=== PATIENT | female | born 1990 | race Caucasian/White ===

== ENCOUNTER 2017-01-17 03:24 | Outpatient (CLI) | payer MEDICAID | END 2017-01-17 03:25 | disposition EMS.NT | LOC: EMS 03:24 | PROVIDERS: ATTEND Surgery | DX: R10.13 Epigastric pain (principal) ==

== ENCOUNTER 2017-09-20 22:39 | Emergency (ER) | payer MEDICAID ==
[2017-09-20 22:47] VITALS: BP 145/102
--- NOTE | 2017-09-20 22:49 | ED Physician Documentation ---
PD HPI BACK PAIN - Stated complaint Stated Complaint: BACK PX - Chief complaint Chief Complaint: Back Pain - History obtained from History obtained from: Patient - History of Present Illness Timing - onset: How many weeks ago (1) Timing - details: Abrupt onset, Intermittant, Waxing and waning Pain level now: 8 Location: Mid, Right, Other (right paralumbar) Quality: Pain Associated symptoms: No: Fever, Weakness Improves with: Nothing Worsened by: Other (no exacerbating factors) Similar symptoms before: Has not had sx before Recently seen: Not recently seen - Additional information Additional information: c/o one week of intermittent right flank and right paralumbar back pain with nausea, became much worse today in severity and persistence (although it has improved while awaiting ED evaluation). Denies injury, denies similar previous episodes Review of Systems Constitutional: denies: Fever, Chills, Sweats Cardiac: reports: Reviewed and negative Respiratory: reports: Reviewed and negative GI: reports: Nausea. denies: Abdominal Pain, Vomiting, Constipation, Diarrhea : denies: Dysuria, Frequency Musculoskeletal: reports: Back pain PD PAST MEDICAL HISTORY - Past Medical History Past Medical History: No - Past Surgical History Past Surgical History: No - Present Medications Home Medications: Ambulatory Orders Medication Instructions Recorded Confirmed Control Implant 09/20/17 HYDROcod/ACETAM 5/325 [[place] 5/325] 1 - 2 ea PO Q6H PRN #15 tablet 09/21/17 - Allergies Allergies/Adverse Reactions: Allergies Allergy/AdvReac Type Severity Reaction Status Date / Time No Known Drug Allergies Allergy Verified 09/20/17 22:47 - Social History Does the pt smoke?: No Smoking Status: Never smoker Does the pt drink ETOH?: No Does the pt have substance abuse?: No PD ED PE NORMAL - Vitals Vital signs reviewed: Yes - General General: Alert and oriented X 3, No acute distress, Well developed/nourished - Cardiac Cardiac: RRR, No murmur - Respiratory Respiratory: No respiratory distress, Clear bilaterally - Abdomen Abdomen: Soft, Non tender, Non distended - Back Back: No CVA TTP, No spinal TTP - Derm Derm: Normal color, Warm and dry, No rash Results - Vitals Vitals: Vital Signs - 24 hr 09/20/17 22:45 Temperature 36.5 C Heart Rate 100 Respiratory 18 Rate Blood Pressure 145/102 H O2 Saturation 100 Oxygen O2 Source Room air - Labs Labs: Laboratory Tests 09/20/17 23:45 Urine Color YELLOW Urine Clarity CLEAR Urine pH 6.0 Ur Specific [place] 1.020 Urine Protein NEGATIVE Urine Glucose (UA) NEGATIVE Urine Ketones NEGATIVE Urine Occult Blood NEGATIVE Urine Nitrite NEGATIVE Urine Bilirubin NEGATIVE Urine Urobilinogen 0.2 (NORMAL) Ur Leukocyte Esterase NEGATIVE Ur Microscopic Review NOT INDICATED Urine Culture Comments NOT INDICATED - Rads (name of study) CT A/P Radiology: Prelim report reviewed, See rad report PD MEDICAL DECISION MAKING - ED course Complexity details: reviewed results, re-evaluated patient, considered differential, d/w patient ED course: suspected renal colic but CT shows no evidence of renal colic, and does show cholelithiasis. Patient reported significant improvement in pain after toradol, and reexam of abdomen reveals no tenderness (as initial exam). patient is appropriate for d/c home, outpatient f/u and return if worse Departure - Departure Disposition: 01 Home, Self Care Clinical Impression: Biliary colic Condition: Good Instructions: ED Gallstone W Biliary Colic Follow-Up: Hair Laguerre MD [Provider Admit Priv/Credential] - (Call to arrange for next available appointment) Prescriptions: HYDROcod/ACETAM 5/325 [[place] 5/325] 1 - 2 ea PO Q6H PRN #15 tablet PRN Reason: Pain Discharge Date/Time: 09/21/17 00:43
--- NOTE | 2017-09-20 23:53 | CT Report ---
EXAM: CT ABDOMEN AND PELVIS (CT KUB) EXAM DATE: 09/20/2017 11:40 PM. CLINICAL HISTORY: Right flank pain. COMPARISONS: Ultrasound 06/03/2016. TECHNIQUE: Routine axial helical CT imaging was performed through the abdomen and pelvis without IV c ontrast. Reconstructions: Coronal and sagittal. In accordance with CT protocol optimization, one or more of the following dose reduction techniques w ere utilized for this exam: automated exposure control, adjustment of mA and/or KV based on patient s ize, or use of iterative reconstructive technique. FINDINGS: Lung Bases: Unremarkable. Right Kidney/Ureter: No stones, hydronephrosis, or hydroureter. No perinephric fat stranding. Left Kidney/Ureter: No stones, hydronephrosis, or hydroureter. No perinephric fat stranding. Other Solid Organs: Noncontrast images of the solid organs are grossly unremarkable. Gallbladder/Bile Ducts: Cholelithiasis without definite cholecystitis. Peritoneal Cavity: No free fluid, free air or jw adenopathy. Bowel is grossly unremarkable. Normal appendix. Pelvic Organs: No bladder stones or wall thickening. Noncontrast images of the visualized pelvic orga ns are unremarkable. Vasculature: Unremarkable. Other: None. IMPRESSION: 1. No urinary tract stones or obstruction. 2. Cholelithiasis. [facility] Referring Provider Line: [phone] SITE ID: [id number]
[2017-09-20 23:56] LABS: BILIRUBIN,URINE NEGATIVE (NEGATIVE); GLUCOSE, URINE (UA) NEGATIVE (NEGATIVE); KETONES,URINE (UA) NEGATIVE (NEGATIVE); LEUKOCYTE ESTERASE, URINE NEGATIVE (NEGATIVE); NITRITE,URINE NEGATIVE (NEGATIVE); OCCULT BLOOD,URINE NEGATIVE (NEGATIVE); PROTEIN,URINE NEGATIVE (NEGATIVE); UROBILINOGEN,URINE 0.2 (NORMAL) E.U./dL (NORMAL)
[2017-09-20 23:57] LABS: CLARITY,URINE CLEAR (CLEAR)
[2017-09-21] MEDS ORDERED: HYDROcod/ACET 5/325 Prepack 6 PO STA (00:16)
== END 2017-09-21 00:43 | disposition home or self-care (01) ==
LOC: ED 22:39
DX: K80.50 Calculus of bile duct without cholangitis or cholecystitis without obstruction (principal)
CPT/HCPCS: 74176; 81001; 81003; 87086; 99283

== ENCOUNTER 2017-10-29 09:12 | Day surgery (SDC) | payer MEDICAID ==
[2017-10-29] MEDS ORDERED: ceFAZolin 2 GM/50 ML 2 GM/50 ML BAG IV ONE (09:26)
[2017-10-29] MEDS ORDERED: LACTATED RINGERS 1,000 ML IV ONE ×2 (09:27→12:45)
[2017-10-29 09:41] LABS: HCG UR QUAL NEGATIVE
[2017-10-29] MEDS ORDERED: PROPOFOL 200 MG/20 ML VIAL IVP ONE (12:30)
[2017-10-29] MEDS ORDERED: NEOSTIGMINE 1 MG/1 ML 10 ML MDV IVP ONE (12:30)
[2017-10-29] MEDS ORDERED: DEXAMETHASONE 4 MG/ML VIAL IVP ONE (12:30)
[2017-10-29] MEDS ORDERED: GLYCOPYRROLATE 1 MG/5 ML VIAL IVP ONE (12:30)
[2017-10-29] MEDS ORDERED: SUCCINYLCHOLINE 200 MG/10 ML VIAL IVP ONE (12:30)
[2017-10-29] MEDS ORDERED: ROCURONIUM 50 MG/5 ML VIAL IVP ONE (12:30)
[2017-10-29] MEDS ORDERED: KETOROLAC 30 MG/ML VIAL IVP ONE (12:30)
[2017-10-29] MEDS ORDERED: LIDOCAINE-MPF 2% 5 ML VIAL IM ONE (12:30)
[2017-10-29] MEDS ORDERED: fentaNYL 100 MCG/2 ML VIAL IVP ONE (12:30)
[2017-10-29] MEDS ORDERED: MIDAZOLAM 2 MG/2 ML VIAL IVP ONE (12:30)
[2017-10-29] MEDS ORDERED: ONDANSETRON 4 MG/2 ML VIAL IVP ONE (12:30)
[2017-10-29] MEDS ORDERED: LIDOCAINE 1%-EPI 1:100000 20 ML MDV SUBQ ONE ×2 (12:38)
[2017-10-29] MEDS: HYDROmorphone 1 MG/ML SYRINGE ONE ×3 (13:32→13:43)
[2017-10-29] MEDS ORDERED: HYDROmorphone 1 MG/ML SYRINGE ONE (14:17)
[2017-10-29] MEDS ORDERED: HYDROcod/ACETAM 5/325 MG TABLET ONE (14:54)
[2017-10-29 15:18] VITALS: BP 121/62
--- NOTE | 2017-10-29 19:31 | OPERATIVE REPORT ---
DATE OF SERVICE: 10/29/2017 Physician: Hair Laguerre MD PREOPERATIVE DIAGNOSIS: Chronic cholecystitis with cholelithiasis. POSTOPERATIVE DIAGNOSIS: Chronic cholecystitis with cholelithiasis. NAME OF PROCEDURE: Laparoscopic cholecystectomy. SURGEON: Hair Laguerre MD ANESTHESIA: General. INDICATIONS FOR PROCEDURE: The patient is a 27-year-old female who presents with severe right upper quadrant abdominal pain, radiating to her back. She was seen in the emergency room and was given pain medication with her pain resolving. She had an abdominal ultrasound, which revealed gallbladder with gallstones. She has had intermittent right upper quadrant abdominal pain since she was seen in the emergency room. She would like to undergo a laparoscopic cholecystectomy. FINDINGS AT SURGERY: The patient had a chronically inflamed gallbladder, containing a large gallstone. PROCEDURE: After informed consent was obtained, the patient was taken to the operating room and placed in supine position. General endotracheal anesthesia was administered. The patient's abdomen was prepped and draped in the usual sterile fashion. Prior to making any abdominal incisions, the skin was injected with local anesthesia. An infraumbilical incision was made in the skin using a scalpel. A Veress needle was then inserted through the incision, through the fascia, and into the abdominal cavity. Position was checked and found correct, with the abdomen then being insufflated. A 12 mm Optiview trocar was inserted through the incision, through the fascia and into the abdominal cavity. Three 5 mm ports were then placed in the right upper quadrant under direct vision. Gallbladder fundus was then grasped and lifted anteriorly and superiorly, exposing the triangle of [place]ot. The peritoneum was then incised in this area. The cystic duct was identified and dissected free from the surrounding structures. The cystic artery was then isolated, clipped proximally and distally, and then divided. A critical view had been obtained. Clips were then placed proximally and distally along the cystic duct with them being divided. The gallbladder was then dissected off the gallbladder bed using electrocautery, placed in an Endobag, and removed through the umbilical port. The right upper quadrant was thoroughly irrigated until the returned fluid was clear. Looking at the gallbladder bed, no bleeding was noted. The umbilical fascial defect was closed using a Yaakov-Melanie suturing device, closing it with 0 Vicryl suture. The ports were then removed with the abdomen then being desufflated. The skin incisions were closed using 4-0 Monocryl subcuticular stitch. Dermabond was then applied. The patient was then awakened, extubated, and taken from the operating room in stable condition. ESTIMATED BLOOD LOSS: Less than 5 mL COMPLICATIONS: None. CONDITION OF THE PATIENT AT END OF PROCEDURE: Stable. SPECIMENS: Gallbladder and gallstones. DRAINS AND PACKS: None. CLASSIFICATION OF WOUND: Clean/contaminated. TD: 10/29/2017 19:21
== END 2017-10-29 09:13 | disposition home or self-care (01) ==
LOC: SDS 09:12
PROVIDERS: ATTEND Surgery
PROC: 0FT44ZZ Resection of Gallbladder, Percutaneous Endoscopic Approach (ICD-10-PCS; principal; 2017-10-29 10:30)
DX: K80.10 Calculus of gallbladder with chronic cholecystitis without obstruction (principal)
CPT/HCPCS: 47562; 81025; A9270; J0690; J1170; J7120

== ENCOUNTER 2021-01-09 15:16 | Day surgery (SDC) | payer MEDICAID, OTHER ==
[2021-01-09] MEDS ORDERED: HYDROmorphone 1 MG/ML CARPUJECT IVP STA ×2 (15:37→16:48)
[2021-01-09] MEDS ORDERED: ONDANSETRON 4 MG/2 ML VIAL IVP STA (15:37)
--- NOTE | 2021-01-09 15:38 | ED Physician Documentation ---
PD HPI ABD PAIN - Stated complaint Stated Complaint: ABD PX - Chief complaint Chief Complaint: Abd Pain - History obtained from History obtained from: Patient - Additional information Additional information: 30-year-old woman with history of cholecystectomy has had progressive right lower quadrant pain today associated with vomiting and diarrhea. The diarrhea is not so bad but she vomited for an hour before she came in. Last menses finished up about a week ago. No possibility of per her. No other abdominal surgeries save the cholecystectomy. Review of Systems Ten Systems: 10 systems reviewed and negative Constitutional: denies: Fever, Chills Nose: reports: Reviewed and negative Throat: reports: Reviewed and negative Cardiac: reports: Reviewed and negative Respiratory: reports: Reviewed and negative PD PAST MEDICAL HISTORY - Past Medical History Cardiovascular: None Respiratory: None Endocrine/Autoimmune: None GI: Cholelithiasis : None HEENT: None Psych: None Musculoskeletal: Chronic back pain Derm: Psoriasis - Past Surgical History Past Surgical History: No - Present Medications Home Medications: Ambulatory Orders Medication Instructions Recorded Confirmed Control Implant 09/20/17 HYDROcod/ACETAM 5/325 [[place] 5/325] 1 - 2 ea PO Q6H PRN #15 tablet 09/21/17 10/22/17 - Allergies Allergies/Adverse Reactions: Allergies Allergy/AdvReac Type Severity Reaction Status Date / Time No Known Drug Allergies Allergy Verified 01/09/21 15:21 - Social History Does the pt smoke?: No Smoking Status: Never smoker Does the pt drink ETOH?: No Does the pt have substance abuse?: No - Immunizations Immunizations are current?: Yes PD ED PE NORMAL - Vitals Vital signs reviewed: Yes - General General: Alert and oriented X 3, No acute distress - HEENT HEENT: PERRL, EOMI - Neck Neck: Supple, no meningeal sign, No bony TTP - Cardiac Cardiac: RRR, No murmur - Respiratory Respiratory: No respiratory distress, Clear bilaterally - Abdomen Abdomen: Normal bowel sounds, Soft, Other (Focally tender in the right lower quadrant with positive heeltap and borderline Rovsing's sign.) - Back Back: No CVA TTP, No spinal TTP - Derm Derm: Normal color, Warm and dry - Extremities Extremities: No edema, No calf tenderness / cord - Neuro Neuro: Alert and oriented X 3, Normal speech Results - Vitals Vitals: Vital Signs - 24 hr 01/09/21 15:21 Temperature 36.5 C Heart Rate 100 Respiratory 16 Rate Blood Pressure 150/57 H O2 Saturation 100 Oxygen O2 Source Room air - Labs Labs: Laboratory Tests 01/09/21 01/09/21 01/09/21 15:32 15:37 15:37 WBC 14.9 H RBC 5.06 Hgb 14.1 Hct 42.8 MCV 84.6 MCH 27.9 MCHC 32.9 RDW 12.6 Plt Count 363 MPV 10.2 Neut # (Auto) 11.1 H Lymph # (Auto) 2.6 [place] # (Auto) 0.9 Eos # (Auto) 0.2 Baso # (Auto) 0.1 Absolute Nucleated RBC 0.00 Nucleated RBC % 0.0 Sodium 139 Potassium 3.8 Chloride 103 Carbon Dioxide 26 Anion Gap 10.0 BUN 8 Creatinine 0.6 Estimated GFR (MDRD) 119 Glucose 106 H Calcium 9.3 Total Bilirubin 0.5 AST 15 ALT 16 Alkaline Phosphatase 75 Total Protein 8.5 H Albumin 4.2 Globulin 4.3 H Albumin/Globulin Ratio 1.0 Lipase 23 Urine Color YELLOW Urine Clarity CLEAR Urine pH 7.5 Ur Specific [place] 1.025 Urine Protein NEGATIVE Urine Glucose (UA) NEGATIVE Urine Ketones NEGATIVE Urine Occult Blood NEGATIVE Urine Nitrite NEGATIVE Urine Bilirubin NEGATIVE Urine Urobilinogen 0.2 (NORMAL) Ur Leukocyte Esterase NEGATIVE Ur Microscopic Review NOT INDICATED Urine Culture Comments NOT INDICATED Urine HCG, Qual NEGATIVE - Rads (name of study) CT A/P Radiology: Discussed with rads, EMP read contemporaneously PD MEDICAL DECISION MAKING - ED course ED course: 30-year-old woman with acute right lower quadrant pain. CT positive for appendicitis. Spoke with the on-call surgeon, Dr. Cuevas few minutes before 5 PM and she expeditiously came and saw the patient and requested Zosyn in the interim. Departure - Departure Disposition: ED Transfer to [facility] Clinical Impression: Appendicitis Qualifiers: Appendicitis type: acute appendicitis Acute appendicitis type: with localized peritonitis Appendicitis gangrene presence: without gangrene Appendicitis perforation presence: without perforation Appendicitis abscess presence: without abscess Qualified Code(s): K35.30 - Acute appendicitis with localized peritonitis, without perforation or gangrene Condition: Stable
[2021-01-09] MEDS ORDERED: IOPAMIDOL-300 100 ML VIAL ONE (15:41)
[2021-01-09 15:44] LABS: BASOPHILS # (AUTO) 0.1 10^3/uL (0.0-0.1); BASOPHILS % (AUTO) 0.7 %; EOSINOPHILS # (AUTO) 0.2 10^3/uL (0.0-0.7); EOSINOPHILS % (AUTO) 1.3 %; HCT - HEMATOCRIT 42.8 % (37.0-47.0); HGB - HEMOGLOBIN 14.1 g/dL (12.0-16.0); LYMPHOCYTES # (AUTO) 2.6 10^3/uL (1.5-3.5); LYMPHOCYTES % (AUTO) 17.3 %; MEAN CORPUSCULAR HEMOGLOBIN 27.9 pg (27.0-31.0); MEAN CORPUSCULAR HGB CONC 32.9 g/dL (32.0-36.0); MEAN CORPUSCULAR VOLUME 84.6 fL (81.0-99.0); MEAN PLATELET VOLUME 10.2 fL (7.9-10.8); MONOCYTES # (AUTO) 0.9 10^3/uL (0.0-1.0); MONOCYTES % (AUTO) 5.9 %; NEUTROPHILS # (AUTO) 11.1 10^3/uL (1.5-6.6); NEUTROPHILS % (AUTO) 74.5 %; PLT - PLATELET COUNT 363 10^3/uL (130-450); RED BLOOD COUNT 5.06 10^6/uL (4.20-5.40); RED CELL DISTRIBUTION WIDTH 12.6 % (12.0-15.0); WHITE BLOOD COUNT 14.9 x10^3/uL (4.8-10.8)
[2021-01-09 15:57] LABS: ALBUMIN 4.2 g/dL (3.2-5.5); BILIRUBIN,TOTAL 0.5 mg/dL (0.2-1.0); CALCIUM 9.3 mg/dL (8.5-10.3); CREATININE 0.6 mg/dL (0.4-1.0); POTASSIUM 3.8 mmol/L (3.5-5.0); TOTAL PROTEIN 8.5 g/dL (6.7-8.2)
[2021-01-09 16:18] LABS: BILIRUBIN,URINE NEGATIVE (NEGATIVE); GLUCOSE, URINE (UA) NEGATIVE (NEGATIVE); KETONES,URINE (UA) NEGATIVE (NEGATIVE); LEUKOCYTE ESTERASE, URINE NEGATIVE (NEGATIVE); NITRITE,URINE NEGATIVE (NEGATIVE); OCCULT BLOOD,URINE NEGATIVE (NEGATIVE); PH,URINE 7.5 PH (5.0-7.5); PROTEIN,URINE NEGATIVE (NEGATIVE); UROBILINOGEN,URINE 0.2 (NORMAL) E.U./dL (NORMAL)
[2021-01-09 16:20] LABS: CLARITY,URINE CLEAR (CLEAR); HCG UR QUAL NEGATIVE
[2021-01-09] MEDS ORDERED: PIPERACILLIN/TAZOBACTAM 3.375 GM in SODIUM CHLORIDE 0.9% MINIBAG 100 ML IV STA (16:58)
[2021-01-09] MEDS ORDERED: LACTATED RINGERS 1,000 ML IV STA (17:02)
--- NOTE | 2021-01-09 17:02 | CT Report ---
PROCEDURE: Abdomen/Pelvis W INDICATIONS: Right lower quadrant abdominal pain CONTRAST: IV CONTRAST: Isovue 300 ml: 100 PO CONTRAST: *NO PO CONTRAST TECHNIQUE: After the administration of intravenous contrast, 5 mm thick sections acquired from the diaphragms to the symphysis. 5 mm thick coronal and sagittal reformats were acquired. For radiation dose reducti on, the following was used: automated exposure control, adjustment of mA and/or kV according to hunter ent size. COMPARISON: None. FINDINGS: Image quality: Excellent. ABDOMEN: Lung bases: Lung bases are clear. Heart size is normal. Solid organs: Liver and spleen are normal in size and enhancement. Gallbladder has been removed. B iliary system is non dilated. Pancreas enhances normally. No adrenal nodules. Kidneys demonstrate normal size and enhancement, without hydronephrosis. Peritoneum and bowel: Fluid-filled appendix measuring approximately 1.1 cm maximum transverse diamete r with adjacent inflammatory changes and mild wall thickening. Hyperdense material at the base of the appendix likely an appendicolith (series 3 image 52). No adjacent fluid collection or free fluid to indicate perforation/abscess. Remainder the bowel is within normal limits. Nodes and vessels: No retroperitoneal or mesenteric adenopathy by size criteria. Aorta and inferior vena cava are normal in size. Miscellaneous: No ventral hernias. PELVIS: Genitourinary: Bladder wall thickness is normal. Miscellaneous: No inguinal hernias or adenopathy. Bones: No suspicious bony lesions. No vertebral body compression fractures. IMPRESSION: Acute appendicitis without imaging evidence of perforation. Reviewed by: Sujit Degroot MD on 01/09/2021 5:01 PM PDT Approved by: Sujit Degroot MD on 01/09/2021 5:01 PM PDT Station ID: [id number]
--- NOTE | 2021-01-09 17:26 | HISTORY & PHYSICAL EXAMINATION ---
HPI - Admitted From Admitted from: ED - History Obtained From Records Reviewed: Old records reviewed History obtained from: Patient Exam limitations: No limitations - History of Present Illness Severity at the worst: reports: Moderate Pain Quality: reports: Sharp, Aching Context-Pain started w/: reports: Rest Timing: reports: Abrupt onset Duration: reports: Hours: (8 hours) Improved with: reports: Nothing Worsened by: reports: Inspiration, Movement, Palpation Associated symptoms: reports: Nausea, Vomiting HPI Comment/Other: 30-year-old lady who presented the emergency room this afternoon complaining of right lower quadrant abdominal pain that was associated with nausea and vomiting as well as diarrhea.He had a cholecystectomy that was uneventful.And evaluated by the emergency room staff and noted to have acute appendicitis on CT scan. I been consulted for definitive management. PMH/PSH - Past Medical History Cardiovascular: positive: None Respiratory: positive: None Endocrine/Autoimmune: positive: None GI: positive: Cholelithiasis : positive: None HEENT: positive: None Psych: positive: None Musculoskeletal: positive: Chronic back pain Derm: positive: Psoriasis MRSA Hx?: No - Past Surgical History General: positive: Cholecystectomy Social & Family Hx - Social History Does the pt smoke?: No Smoking Status: Never smoker Does the pt drink ETOH?: No Does the pt have substance abuse?: No Meds/Allgy - Home Medications Home Medications: Ambulatory Orders Medication Instructions Recorded Confirmed Control Implant 09/20/17 HYDROcod/ACETAM 5/325 [[place] 5/325] 1 - 2 ea PO Q6H PRN #15 tablet 09/21/17 10/22/17 - Allergies Allergies/Adverse Reactions: Allergies Allergy/AdvReac Type Severity Reaction Status Date / Time No Known Drug Allergies Allergy Verified 01/09/21 15:21 Review of Systems - Constitutional Constitutional: reports: Fatigue, Poor appetite - Gastrointestinal Gastrointestinal: reports: Abdominal pain, Diarrhea, Nausea, Vomiting - Genitourinary Genitourinary: denies: Dysuria, Urgency - Neurological Neurological: denies: Headache, Dizziness - Endocrine Endocrine: denies: Polyuria, Polydypsia - Hematologic/Lymphatic Hematologic/Lymphatic: denies: Anemia, Bruising - All Other Systems All Other Systems: reports: Reviewed and negative Exam - Vital Signs Reviewed Vital Signs: Yes Vital Signs: Vital Signs x48h Temp Pulse Resp BP Pulse Ox 01/09/21 15:21 36.5 C 100 16 150/57 H 100 - Physical Exam General Appearance: positive: Alert, Mild distress Eyes Bilateral: positive: Normal inspection, PERRL, EOMI ENT: positive: ENT inspection nml, Pharynx nml, No signs of dehydration Neck: positive: Nml inspection, No JVD, Trachea midline Respiratory: positive: Chest non-tender, No respiratory distress, Breath sounds nml Cardiovascular: positive: Regular rate & rhythm, No murmur Peripheral Pulses: positive: 1+ Abdomen: positive: Nml bowel sounds, Tenderness, Guarding, Rebound Back: positive: Nml inspection Skin: positive: Color nml, No rash, Warm, Dry Extremities: positive: Non-tender, Full ROM Results - Lab Results Fish Bones: 01/09/21 15:37 01/09/21 15:37 Other Lab Results: Lab Results x24hrs 01/09/21 01/09/21 01/09/21 Range/Units 15:37 15:37 15:32 WBC 14.9 H (4.8-10.8) x10^3/uL RBC 5.06 (4.20-5.40) 10^6/uL Hgb 14.1 (12.0-16.0) g/dL Hct 42.8 (37.0-47.0) % MCV 84.6 (81.0-99.0) fL MCH 27.9 (27.0-31.0) pg MCHC 32.9 (32.0-36.0) g/dL RDW 12.6 (12.0-15.0) % Plt Count 363 (130-450) 10^3/uL MPV 10.2 (7.9-10.8) fL Neut # (Auto) 11.1 H (1.5-6.6) 10^3/uL Lymph # (Auto) 2.6 (1.5-3.5) 10^3/uL [place] # (Auto) 0.9 (0.0-1.0) 10^3/uL Eos # (Auto) 0.2 (0.0-0.7) 10^3/uL Baso # (Auto) 0.1 (0.0-0.1) 10^3/uL Absolute Nucleated RBC 0.00 x10^3/uL Nucleated RBC % 0.0 /100WBC Sodium 139 (135-145) mmol/L Potassium 3.8 (3.5-5.0) mmol/L Chloride 103 (101-111) mmol/L Carbon Dioxide 26 (21-32) mmol/L Anion Gap 10.0 (6-13) BUN 8 (6-20) mg/dL Creatinine 0.6 (0.4-1.0) mg/dL Estimated GFR (MDRD) 119 (>89) Glucose 106 H (70-100) mg/dL Calcium 9.3 (8.5-10.3) mg/dL Total Bilirubin 0.5 (0.2-1.0) mg/dL AST 15 (10-42) IU/L ALT 16 (10-60) IU/L Alkaline Phosphatase 75 (42-121) IU/L Total Protein 8.5 H (6.7-8.2) g/dL Albumin 4.2 (3.2-5.5) g/dL Globulin 4.3 H (2.1-4.2) g/dL Albumin/Globulin Ratio 1.0 (1.0-2.2) Lipase 23 (22-51) U/L Urine Color YELLOW Urine Clarity CLEAR (CLEAR) Urine pH 7.5 (5.0-7.5) PH Ur Specific [place] 1.025 (1.002-1.030) Urine Protein NEGATIVE (NEGATIVE) mg/dL Urine Glucose (UA) NEGATIVE (NEGATIVE) mg/dL Urine Ketones NEGATIVE (NEGATIVE) mg/dL Urine Occult Blood NEGATIVE (NEGATIVE) Urine Nitrite NEGATIVE (NEGATIVE) Urine Bilirubin NEGATIVE (NEGATIVE) Urine Urobilinogen 0.2 (NORMAL) (NORMAL) E.U./dL Ur Leukocyte Esterase NEGATIVE (NEGATIVE) Ur Microscopic Review NOT INDICATED Urine Culture Comments NOT INDICATED Urine HCG, Qual NEGATIVE - Diagnostic Imaging Results Diagnostic Imaging Results Comments: Consistent with acute appendicitis without evidence of perforation - EKG Results EKG Interpreted Independently: No Impression/Plan - Problem List Problem List: Acute appendicitis in the setting of an otherwise healthy young woman. We have discussed the risks and benefits of laparoscopy with appendectomy and the patient is expressed verbal and written consent to proceed
[2021-01-09] MEDS ORDERED: fentaNYL 100 MCG/2 ML VIAL ONE (17:48)
[2021-01-09] MEDS ORDERED: MIDAZOLAM 2 MG/2 ML VIAL ONE (17:48)
[2021-01-09] MEDS ORDERED: IOPAMIDOL-300 100 ML VIAL IVP ONE (17:52)
[2021-01-09] MEDS ORDERED: LIDOCAINE 1% 50 ML MDV SUBQ ONE (18:17)
[2021-01-09] MEDS ORDERED: BUPIVACAINE 0.5%-EPI 1:200000 PF 30 ML VIAL SUBQ ONE (18:17)
--- NOTE | 2021-01-09 18:17 | ANESTHESIA ---
Pre-Anesthesia VS, & Labs - Diagnosis acute appendicitis - Procedure lap appy Vital Signs: Temp Pulse Resp BP Pulse Ox 36.5 C 100 16 150/57 H 100 01/09/21 15:21 01/09/21 15:21 01/09/21 15:21 01/09/21 15:21 01/09/21 15:21 Height: 5 ft 4 in Weight (kg): 113.398 kg Body Mass Index: 42.9 BMI Classification: Morbidly Obese - NPO >8 hours (ate at 11am) - Is Patient ?: No - Lab Results Current Lab Results: Laboratory Tests 01/09/21 15:37: Sodium 139, Potassium 3.8, Chloride 103, Carbon Dioxide 26, Anion Gap 10.0, BUN 8, Creatinine 0.6, Estimated GFR (MDRD) 119, Glucose 106 H, Calcium 9.3, Total Bilirubin 0.5, AST 15, ALT 16, Alkaline Phosphatase 75, Total Protein 8.5 H, Albumin 4.2, Globulin 4.3 H, Albumin/Globulin Ratio 1.0, Lipase 23 01/09/21 15:37: WBC 14.9 H, RBC 5.06, Hgb 14.1, Hct 42.8, MCV 84.6, MCH 27.9, MCHC 32.9, RDW 12.6, Plt Count 363, MPV 10.2, Neut # (Auto) 11.1 H, Lymph # (Auto) 2.6, [place] # (Auto) 0.9, Eos # (Auto) 0.2, Baso # (Auto) 0.1, Absolute Nucleated RBC 0.00, Nucleated RBC % 0.0 Lab results reviewed: Yes Fish Bones: 01/09/21 15:37 01/09/21 15:37 Home Medications and Allergies Active Medications Lactated Ringer's (Lr) 1,000 mls @ 150 mls/hr IV .Q6H40M STA Stop: 01/09/21 23:41 Last Admin: 01/09/21 17:44 Dose: 150 mls/hr Documented by: Control Implant 09/20/17 Allergies/Adverse Reactions: Allergies Allergy/AdvReac Type Severity Reaction Status Date / Time No Known Drug Allergies Allergy Verified 01/09/21 15:21 Anes History & Medical History - Anesthetic History Anesthesia Complications: reports: No previous complications - Medical History Cardiovascular: reports: None Pulmonary: reports: None Gastrointestinal: reports: None Urinary: reports: None Neuro: reports: None Musculoskeletal: reports: Chronic back pain Endocrine/Autoimmune: reports: None Blood Disorders: reports: None Skin: reports: Psoriasis Smoking Status: Never smoker Psychosocial: reports: Depression, Anxiety, Cannabis History of Cancer?: No - Surgical History General: reports: Cholecystectomy Exam General: Alert, Oriented x3, Cooperative, No acute distress Dental: WNL Mouth Openin Fingerbreadth Neck Mobility: Normal Mallampati classification: II Thyromental Distance: 4-6 cm Respiratory: Lungs clear, Normal breath sounds, No respiratory distress, No accessory muscle use Cardiovascular: Regular rate, Normal S1, Normal S2, No murmurs Mental/Cognitive Status: Alert/Oriented X3, Normal for patient Plan Anesthesia Type: General Consent for Procedure(s) Verified and Reviewed: Yes Code Status: Attempt Resuscitation ASA classification: 2-Mild systemic disease Is this case an emergency?: No
[2021-01-09] MEDS ORDERED: SEVOFLURANE 250 ML LIQUID INH ONE (18:18)
[2021-01-09] MEDS ORDERED: LIDOCAINE-MPF 2% 5 ML VIAL ONE (18:19)
[2021-01-09] MEDS ORDERED: ROCURONIUM 50 MG/5 ML VIAL ONE (18:19)
[2021-01-09] MEDS ORDERED: PROPOFOL 200 MG/20 ML VIAL IVP ONE (18:19)
[2021-01-09] MEDS ORDERED: ONDANSETRON 4 MG/2 ML VIAL IVP PRN ×2 (18:33→18:50)
[2021-01-09] MEDS ORDERED: ATROPINE ABBOJECT 1 MG/10 ML SYRINGE IVP PRN (18:33)
[2021-01-09] MEDS ORDERED: fentaNYL 100 MCG/2 ML VIAL IVP PRN (18:33)
[2021-01-09] MEDS ORDERED: MORPHINE 2 MG/ML CARPUJECT IVP PRN (18:33)
[2021-01-09] MEDS ORDERED: NALOXONE 0.4 MG/ML VIAL IVP PRN (18:33)
[2021-01-09] MEDS ORDERED: HYDROmorphone 0.5 MG/0.5 ML SYRINGE IVP PRN (18:33)
[2021-01-09] MEDS ORDERED: SUGAMMADEX 200 MG/2 ML VIAL IVP ONE (18:36)
[2021-01-09] MEDS ORDERED: DEXAMETHASONE 4 MG/ML VIAL ONE (18:36)
[2021-01-09] MEDS ORDERED: KETOROLAC 30 MG/ML VIAL ONE (18:36)
[2021-01-09] MEDS ORDERED: HYDROmorphone 1 MG/ML CARPUJECT ONE (18:45)
--- NOTE | 2021-01-09 18:49 | OPERATIVE REPORT ---
Operative Report - General Procedure Date: 01/09/21 Planned Procedure: Laparoscopy with appendectomy Pre-Op Diagnosis: Acute appendicitis Procedure Performed: Laparoscopy with appendectomy Post Op Diagnosis: Acute appendicitis without evidence of perforation - Procedure Note Primary Surgeon: Faith Anesthesia Provider: LUIS ENRIQUE Preciado Anesthesia Technique: General ET tube, Local Pathology: Appendix in formalin to pathology Estimated Blood Loss (mL): 15 Findings: Enlarged and turgid appendix without gross purulence Complications: None apparent - Other Other Information/Narrative: After obtaining informed consent, the patient is brought to the operating room and placed in the supine position on the operating table. Following successful induction of general endotracheal anesthesia, appropriate padding of all bony prominences, and placement of appropriate monitors, the abdomen was prepped and draped in the standard surgical fashion. A timeout was held per scope protocol. All elements of the surgical safety checklist were followed before, during, and after the procedure. Following infiltration with local anesthetic to create a field block, an incision was created inferior to the umbilicus and carried down through the skin and subcutaneous tissue to reveal the fascia below. 2-0 Vicryl retention sutures were placed on either side of the midline and the abdomen was entered under direct vision using a 15 blade scalpel. A 10 mm blunt Todd balloon trocar was placed in the abdominal cavity and it was insufflated to 15 mmHg pressure. The patient was placed in Trendelenburg position with the left side rotated toward the floor. The camera was placed in the abdominal cavity and we immediately visualized the cecum in the right lower quadrant. It was rotated medially to reveal a somewhat dilated and turgid appendix. The appendix was grasped and elevated revealing its attachment to the cecum. A window was created in the mesoappendix at this location. A laparoscopic stapling device was used to ligate the appendix and liberated from its attachment to the cecum. An additional load of the device were used to divide its mesentery.The appendix was placed in an Endo Catch bag and removed via the umbilical port with a camera in the epigastric position. The camera was replaced in the operative site examined. It was irrigated with warm saline solution and aspirated free of all fluid and particulate matter. The table was flattened and the abdomen evaluated once again. The trochars were removed under direct vision and abdomen was desufflated. The umbilical incision was closed with interrupted Vicryl suture and Monocryl stitches were placed in the skin. All sponge, needles, and instrument counts were correct at the conclusion of the case. The patient was allowed to wake from anesthesia without difficulty and taken to the postanesthesia care unit in good condition.
[2021-01-09] MEDS ORDERED: ACETAMINOPHEN 325 MG TABLET PO PRN (18:50)
[2021-01-09] MEDS ORDERED: IBUPROFEN 600 MG TABLET PO PRN (18:50)
[2021-01-09] MEDS ORDERED: oxyCODONE 5 MG TABLET PO PRN (18:50)
[2021-01-09] MEDS ORDERED: LACTATED RINGERS 200 ML IV ONE (18:55)
[2021-01-09] MEDS ORDERED: oxyCODONE/ACET 5/325 Prepack 4 PO STA (18:59)
[2021-01-09] MEDS ORDERED: ONDANSETRON ODT 4 MG Prepack 2 TL STA (18:59)
[2021-01-09] MEDS ORDERED: LACTATED RINGERS 1,000 ML IV SCH (19:00)
--- NOTE | 2021-01-09 19:12 | ANESTHESIA POST OP EVALUATION ---
Anesthesia Post Eval - Post Anesthesia Eval Vitals: Last Vital Signs Temp 36.5 C 01/09/21 19:06 Pulse 89 01/09/21 19:06 Resp 14 01/09/21 19:06 BP 138/94 H 01/09/21 19:06 Pulse Ox 100 01/09/21 19:06 CV Function Including HR & BP: Stable Pain Control: Satisfactory Nausea & Vomiting: Negative Mental Status: Baseline Respiratory Status: Airway Patent Hydration Status: Satisfactory Anesthesia Complications: None
[2021-01-09 21:09] VITALS: BP 118/79
== END 2021-01-09 21:35 | disposition home or self-care (01) ==
LOC: ED 15:16 → SDS 17:11 → MS2 19:17 → SDS 21:35
PROVIDERS: ATTEND Surgery
PROC: 0DTJ4ZZ Resection of Appendix, Percutaneous Endoscopic Approach (ICD-10-PCS; principal; 2021-01-09 16:30)
DX: K35.80 Unspecified acute appendicitis (principal); E66.01 Morbid (severe) obesity due to excess calories; Z68.41 Body mass index [BMI] 40.0-44.9, adult; Z79.3 Long term (current) use of hormonal contraceptives; Z72.89 Other problems related to lifestyle
CPT/HCPCS: 36415; 44970; 74177; 80053; 81003; 81025; 83690; 85025; 96374; 96375; 99285; J1170; J3490; J7120; Q9967; 81001; 87086

== ENCOUNTER 2021-01-16 18:07 | Emergency (ER) | payer OTHER ==
[2021-01-16] MEDS ORDERED: DOXEPIN 10 MG CAPSULE PO STA (19:24)
[2021-01-16] MEDS ORDERED: predniSONE 20 MG TABLET PO STA (19:24)
--- NOTE | 2021-01-16 19:26 | ED Physician Documentation ---
PD HPI WOUND RECHECK - Stated complaint Stated Complaint: POST OP COMPLICATIONS - Chief complaint Chief Complaint: Wound - Histroy obtained from History obtained from: Patient - Additional information Additional information: 22-year-old woman with recent laparoscopic appendectomy. She noticed over the last day that she has redness of her anterior abdominal wall, and a square shape. No fevers or chills. Review of Systems Constitutional: denies: Fever, Chills Eyes: denies: Loss of vision, Decreased vision Ears: denies: Loss of hearing, Ear pain Nose: denies: Rhinorrhea / runny nose, Congestion Cardiac: denies: Chest pain / pressure, Palpitations PD PAST MEDICAL HISTORY - Past Medical History Cardiovascular: None Respiratory: None Neuro: None Endocrine/Autoimmune: None GI: None : None HEENT: None Psych: None Musculoskeletal: Chronic back pain Derm: Psoriasis - Past Surgical History Past Surgical History: No General: Cholecystectomy - Present Medications Home Medications: Ambulatory Orders Medication Instructions Recorded Confirmed Control Implant 09/20/17 Doxepin [SINEquan] 10 mg PO TID PRN #20 cap 01/16/21 predniSONE [Deltasone] 60 mg PO DAILY 5 Days #15 tablet 01/16/21 - Allergies Allergies/Adverse Reactions: Allergies Allergy/AdvReac Type Severity Reaction Status Date / Time No Known Drug Allergies Allergy Verified 01/16/21 18:22 - Social History Does the pt smoke?: No Smoking Status: Never smoker Does the pt drink ETOH?: No Does the pt have substance abuse?: No - Immunizations Immunizations are current?: Yes PD ED PE NORMAL - Vitals Vital signs reviewed: Yes - General General: Alert and oriented X 3, No acute distress - Abdomen Abdomen: Normal bowel sounds, Soft, Non tender, Other (Beet red dermatitis of the anterior abdominal wall, the borders seem to match the shape of what I presume was the surgical drape with clearly demarcated borders which is not co nsistent with cellulitis.) - Back Back: No CVA TTP, No spinal TTP - Derm Derm: Normal color, Warm and dry - Extremities Extremities: No edema, No calf tenderness / cord - Neuro Neuro: Alert and oriented X 3, Normal speech Results - Vitals Vitals: Vital Signs - 24 hr 01/16/21 18:19 Temperature 36.9 C Heart Rate 103 H Respiratory 16 Rate Blood Pressure 149/97 H O2 Saturation 98 Oxygen O2 Source Room air PD MEDICAL DECISION MAKING - ED course ED course: This young lady has a contact dermatitis related to something used perioperatively, not sure if it was the cleaning solution or the adhesive from the drapes. Either way she is amenable to some steroids and doxepin. No evidence of infection. Departure - Departure Disposition: 01 Home, Self Care Clinical Impression: Dermatitis Condition: Good Record reviewed to determine appropriate education?: Yes Instructions: ED Dermatitis Contact Prescriptions: predniSONE [Deltasone] 60 mg PO DAILY 5 Days #15 tablet Doxepin [SINEquan] 10 mg PO TID PRN #20 cap PRN Reason: Itching Comments: If you were to have surgery again make sure that she mentioned that you are sensitive to either cleaning solutions or adhesives. Return for new or worsening symptoms.
[2021-01-16 20:05] VITALS: BP 148/102
== END 2021-01-16 19:58 | disposition home or self-care (01) ==
LOC: ED 18:07
DX: L76.82 Other postprocedural complications of skin and subcutaneous tissue (principal)
CPT/HCPCS: 99282; 99284; A9270; J7512